=== PATIENT | female | born 1985 | race Two or more races ===

== ENCOUNTER → 2024-10-30 | Outpatient (CLI) | payer OTHER ==
[2024-10-30 13:56] LABS: BLOOD UREA NITROGEN 12 MG/DL (9-23); CALCIUM LEVEL 9.3 MG/DL (8.5-10.1); CARBON DIOXIDE LEVEL 29 MMOL/L (20-31); CHLORIDE LEVEL 102 MMOL/L (98-107); CREATININE FOR GFR 0.78 MG/DL (0.55-1.30); GLOMERULAR FILTRATION RATE > 60.0 (>60); GLUCOSE, FASTING 83 MG/DL (60-100); POTASSIUM SERUM 4.3 MMOL/L (3.5-5.1); SODIUM LEVEL 137 MMOL/L (136-145)
== END ==
LOC: M LAB 12:43
PROVIDERS: ATTEND Student in an Organized Health Care Education/Training Program
DX: R19.09 Other intra-abdominal and pelvic swelling, mass and lump (principal)

== ENCOUNTER → 2024-11-14 | Outpatient (CLI) | payer OTHER ==
[~2024-11-14] MED LIST: ISOVUE-370 76% 100ML VIAL As Ordered ONE
== END ==
LOC: M RAD 10:54 → EDUNIT# 11:00
PROVIDERS: ATTEND Student in an Organized Health Care Education/Training Program
DX: R10.2 Pelvic and perineal pain (principal); R19.00 Intra-abdominal and pelvic swelling, mass and lump, unspecified site; M62.08 Separation of muscle (nontraumatic), other site
CPT/HCPCS: 72193; Q9967

== ENCOUNTER 2025-08-30 08:46 | Emergency (ER) | payer OTHER ==
[~2025-08-30] VITALS: Ht 162.6 cm; Wt 63.8 kg
[2025-08-30] MEDS ORDERED: MULTTAB20 PO (08:53)
[2025-08-30 09:18] LABS: PLATELET COUNT, AUTOMATED 128 10^3/uL (150-450)
[2025-08-30 10:30] LABS: KETONE, URINE AUTO RFX NEGATIVE (NEGATIVE); LEUKOCYTE ESTERASE UR AUTO RFX NEGATIVE (NEGATIVE); NITRITE, URINE AUTO RFX NEGATIVE (NEGATIVE); RBC, URINE AUTO RFX 70 /HPF (0-3); SQUAM EPITHELIAL CELL UR AURFX 0 /HPF (0-6); WBC, URINE AUTO RFX 3 /HPF (0-3)
[2025-08-30 12:15] LABS: Trichomonas vaginalis (AMP) NOT DETECTED (NEGATIVE)
[2025-08-30 12:38] LABS: GC DNA AMPLIFICATION NEGATIVE (NEGATIVE)
[2025-08-30 13:06] VITALS: BP 102/76; TEMP 99.1; O2SAT 99
== END 2025-08-30 13:24 | disposition home or self-care (01) ==
LOC: M ED 10:40
DX: O03.4 Incomplete spontaneous abortion without complication (principal); Z79.899 Other long term (current) drug therapy

== ENCOUNTER 2025-09-02 10:26 | Day surgery (SDC) | payer OTHER ==
[~2025-09-02] VITALS: Ht 162.6 cm; Wt 64.4 kg
[~2025-09-02 10:26] MED LIST changes: -ISOVUE-370 76% 100ML VIAL As Ordered ONE; +MULTTAB20 PO
[2025-09-02] MEDS ORDERED: MIDAZOLAM INJ 2 MG/2 ML VIAL As Ordered ONE (11:07)
[2025-09-02] MEDS ORDERED: KETOROLAC 30 MG/ML 1 ML VIAL As Ordered ONE (11:08)
[2025-09-02] MEDS ORDERED: dexAMETHasone 4 MG/ML 1 ML VIAL As Ordered ONE (11:08)
[2025-09-02] MEDS ORDERED: dexmedeTOMIDine (4 MCG/ML) 200 MCG/50 ML BTL As Ordered ONE (11:08)
[2025-09-02] MEDS ORDERED: ONDANSETRON 4MG/2ML VIAL As Ordered ONE (11:08)
[2025-09-02] MEDS ORDERED: LIDOCAINE 2% 100 MG/5 ML SDV (FOR ANES.) As Ordered ONE (11:08)
[2025-09-02] MEDS ORDERED: SEVOFLURANE INHAL SOLN 250 ML BTL As Ordered ONE (11:14)
[2025-09-02 11:25] LABS: PLATELET COUNT, AUTOMATED 125 10^3/uL (150-450)
[2025-09-02] MEDS: DOXYCYCLINE HYCLATE 100 MG/10 ML VIAL As Ordered ONE (11:59)
[2025-09-02] MEDS ORDERED: PHENYLephrine 500MCG 5ML (100MCG/ML) SYRINGE As Ordered ONE (12:13)
[2025-09-02] MEDS ORDERED: ACETAMINOPHEN 1000MG/100ML IV BAG As Ordered ONE (12:13)
[2025-09-02 14:20] VITALS: BP 101/55; TEMP 97.7; O2SAT 100
== END 2025-09-02 14:24 | disposition home or self-care (01) ==
LOC: M SDC 10:26
PROVIDERS: ATTEND Student in an Organized Health Care Education/Training Program
DX: O02.1 Missed abortion (principal)
CPT/HCPCS: 36415; 59820; 76857; 85027; 86850; 86900; 86901; 88305; J0131; J1100; J1271; J1885; J2250; J2371; J2405; J3010